=== PATIENT | male | born 1965 | race Caucasian/White ===

== ENCOUNTER 2018-05-21 15:31 | Emergency (ER) | payer MEDICAID ==
[~2018-05-21] VITALS: Ht 162.6 cm; Wt 90.3 kg
[2018-05-21 15:52] VITALS: BP 148/99
--- NOTE | 2018-05-21 16:55 | NUR ---
PATIENT AMBULATED TO ER BED 4.
[2018-05-21] MEDS ORDERED: MORPHINE SULFATE 2 MG/ML SYR IM ONE (17:20)
[2018-05-21] MEDS ORDERED: diphenhydrAMINE 50 MG/ML VIAL IM ONE (17:20)
[2018-05-21] MEDS ORDERED: KETOROLAC 60 MG/2 ML VIAL IM ONE (17:20)
--- NOTE | 2018-05-21 17:30 | NUR ---
PT TAKEN TO CT WITH TECH VIA WHEELCHAIR. Addendum: 05/21/18 at 1743 by [email or web address] PT TAKEN TO CT WITH TECH VIA GURNY.
--- NOTE | 2018-05-21 17:44 | NUR ---
PT BACK IN ROOM FROM CT BY JENNIE VIA [employer].
--- NOTE | 2018-05-21 19:00 | NUR ---
PT STATES TO ONLY HAVE PAIN WITH MOVEMENT.
[2018-05-21 19:25] VITALS: BP 119/82
== END 2018-05-21 19:25 | disposition home or self-care (01) ==
LOC: MED 15:31
DX: S22.31XA Fracture of one rib, right side, initial encounter for closed fracture (principal); W18.30XA Fall on same level, unspecified, initial encounter; Y93.89 Activity, other specified; Y92.89 Other specified places as the place of occurrence of the external cause; Y99.8 Other external cause status
CPT/HCPCS: 71250; 74176; 96374; 96375; 99284; J1200; J1885; J2270

== ENCOUNTER 2018-05-25 08:32 | Emergency (ER) | payer MEDICAID ==
[~2018-05-25] VITALS: Ht 165.1 cm; Wt 88.5 kg
[2018-05-25 08:55] VITALS: BP 156/79
[2018-05-25 09:15] VITALS: BP 158/82
== END 2018-05-25 09:15 | disposition home or self-care (01) ==
LOC: MED 08:32
DX: S22.31XD Fracture of one rib, right side, subsequent encounter for fracture with routine healing (principal); J06.9 Acute upper respiratory infection, unspecified; I10 Essential (primary) hypertension; W22.03XD Walked into furniture, subsequent encounter
CPT/HCPCS: 99281; 99284

== ENCOUNTER 2018-07-04 08:21 | Emergency (ER) | payer MEDICAID ==
[~2018-07-04] VITALS: Ht 165.1 cm; Wt 88.9 kg
[2018-07-04 08:33] VITALS: BP 139/86
--- NOTE | 2018-07-04 08:39 | NUR ---
PT AMBULATES TO BED 7
--- NOTE | 2018-07-04 08:49 | NUR ---
BIB SELF. C/O LOW BACK PAIN 01/28 RADIATING TO BILATERAL LEGS X 5 DAYS. PT SAW PRIMARY DR AND WAS GIVEN 800MG IBUPROFEN, PT STATES NO RELIEF. STATES HE INJURIED HIS BACK AT WORK WHEN LIFTING SOMETHING HEAVY. DENIES ANY OTHER SYMPTOMS AT THIS TIME.
--- NOTE | 2018-07-04 08:52 | NUR ---
Patient being evaluated by physician at bedside.
[2018-07-04] MEDS ORDERED: KETOROLAC 60 MG/2 ML VIAL IM ONE (08:55)
[2018-07-04 09:19] VITALS: BP 139/86
== END 2018-07-04 09:20 | disposition home or self-care (01) ==
LOC: MED 08:21
DX: M54.5 Low back pain (principal); I10 Essential (primary) hypertension
CPT/HCPCS: 81002; 96372; 99283; J1885